=== PATIENT | male | born 1980 | race Caucasian/White ===

== ENCOUNTER 2019-11-27 07:54 | Emergency (ER) | payer MEDICAID ==
[~2019-11-27] VITALS: Ht 182.9 cm; Wt 67.3 kg
[~2019-11-27 07:54] MED LIST: SILD50TA PO
[2019-11-27] MEDS ORDERED: LIDOcaine 4% (40 mg/ml) topical solution 50ml TP ONE (08:20)
[2019-11-27] MEDS ORDERED: LIDOcaine 1% W/epiNEPHrine 1:200,000 10ml vial IJ ONE (09:10)
[2019-11-27] MEDS ORDERED: CEPH500C5 PO (09:20)
[2019-11-27] MEDS ORDERED: ibuprofen 200mg tablet PO ONE (09:25)
[2019-11-27] MEDS ORDERED: HYDROcodone/acetaminophen 5mg/325mg tablet PO ONE (09:25)
[2019-11-27 09:35] VITALS: BP 120/70
== END 2019-11-27 09:39 | disposition home or self-care (01) ==
LOC: ER 07:54
DX: L72.3 Sebaceous cyst (principal); F41.9 Anxiety disorder, unspecified; F32.9 Major depressive disorder, single episode, unspecified; F17.200 Nicotine dependence, unspecified, uncomplicated; F15.90 Other stimulant use, unspecified, uncomplicated; Z79.2 Long term (current) use of antibiotics; Z79.899 Other long term (current) drug therapy
CPT/HCPCS: 87070; 87077; 87186; 99283

== ENCOUNTER 2019-11-29 12:00 | Emergency (ER) | payer OTHER, MEDICAID ==
[~2019-11-29] VITALS: Ht 182.9 cm; Wt 65.5 kg
[~2019-11-29 12:00] MED LIST changes: +CEPH500C5 PO
--- NOTE | 2019-11-29 12:30 | NUR ---
Patient reports having a syncopal event in snf with laceration to face and complains of tenderness to his neck. Patient reports that he believes pain is r/t the abscess which is present. Patient is log-rolled maintaining c-spine precautions and c-collar placed.
[2019-11-29] MEDS ORDERED: LIDOcaine 1% W/epiNEPHrine 1:200,000 10ml vial IJ ONE (12:40)
[2019-11-29 13:04] LABS: BASOPHILS % (AUTO) 0.2 % (0-1); EOSINOPHILS # (AUTO) 0.2 X10'3 (0-0.9); EOSINOPHILS % (AUTO) 1.2 % (0-6); HEMOGLOBIN 13.8 g/dl (14.0-17.9); LYMPHOCYTES # (AUTO) 1.4 X10'3 (1.1-4.8); LYMPHOCYTES % (AUTO) 9.5 % (21-51); MEAN CORPUSCULAR HEMOGLOBIN 28.3 PG (27.0-31.0); MEAN CORPUSCULAR HGB CONC 32.8 g/dL (33.0-36.5); MEAN CORPUSCULAR VOLUME 86.3 FL (78-98); MEAN PLATELET VOLUME 7.6 FL (7.4-10.4); MONOCYTES # (AUTO) 0.9 X10'3 (0-0.9); MONOCYTES % (AUTO) 5.8 % (2-12); NEUTROPHILS # (AUTO) 12.2 X10'3 (1.8-7.7); NEUTROPHILS % (AUTO) 83.3 % (42-75); PLATELET COUNT 328 X10'3 (140-440); RED BLOOD COUNT 4.86 X10'6 (4.70-6.10); RED CELL DISTRIBUTION WIDTH 13.4 % (11.5-14.5); WHITE BLOOD COUNT 14.7 X10'3 (4.5-11.0)
[2019-11-29] MEDS ORDERED: normal saline 1000ML IV soln IVB ONE (13:05)
[2019-11-29 13:23] LABS: ALANINE AMINOTRANSFERASE 29 U/L (12-78); ALBUMIN 3.2 G/DL (3.4-5.0); ALBUMIN/GLOBULIN RATIO 0.8 (1.1-1.5); ALKALINE PHOSPHATASE 47 IU/L (46-116); ANION GAP 8 (8-16); ASPARTATE AMINO TRANSFERASE 29 U/L (10-37); BILIRUBIN,TOTAL 0.3 MG/DL (0.1-1.0); BLOOD UREA NITROGEN 16 MG/DL (7-18); CALCIUM 8.8 MG/DL (8.5-10.1); CHLORIDE 100 MMOL/L (99-107); CREATININE 1.14 MG/DL (0.60-1.10); GLUCOSE 96 MG/DL (70-104); POTASSIUM 3.6 MMOL/L (3.5-5.1); SODIUM 137 MMOL/L (135-145); TOTAL CARBON DIOXIDE 29.5 MMOL/L (24-32); TOTAL PROTEIN 7.3 G/DL (6.4-8.2); eGFR 72 ML/MIN
[2019-11-29] MEDS ORDERED: iohexol 300mg/ml 100ml inj. ONE (13:46)
--- NOTE | 2019-11-29 13:57 | NUR ---
Patient to CT with nurse holding spinal precautions and patient in c-collar
--- NOTE | 2019-11-29 14:23 | NUR ---
pt back from CT, no neuro deficits, used cspine precautions to move pt from [facility] to [facility] and back, gave pt warm blanket
[2019-11-29] MEDS ORDERED: SULF1TAB49 PO (18:34)
[2019-11-29 18:59] VITALS: BP 117/82
== END 2019-11-29 19:03 | disposition left against medical advice (07) ==
LOC: ER 12:01 → EEVIPCON 12:01 → ER 19:03
DX: S01.81XA Laceration without foreign body of other part of head, initial encounter (principal); R55 Syncope and collapse; G43.909 Migraine, unspecified, not intractable, without status migrainosus; F41.9 Anxiety disorder, unspecified; F32.9 Major depressive disorder, single episode, unspecified; F15.90 Other stimulant use, unspecified, uncomplicated; Z72.89 Other problems related to lifestyle; Z79.2 Long term (current) use of antibiotics; Z79.899 Other long term (current) drug therapy; W18.39XA Other fall on same level, initial encounter; Y93.89 Activity, other specified; Y92.89 Other specified places as the place of occurrence of the external cause; Y99.8 Other external cause status
CPT/HCPCS: 12013; 36415; 70450; 71045; 72126; 72141; 80053; 83880; 84484; 85025; 93005; 96360; 96361; 99285; J7030; Q9967

== ENCOUNTER 2020-05-25 19:04 | Emergency (ER) | payer MEDICAID, OTHER ==
[~2020-05-25] VITALS: Ht 182.9 cm; Wt 90.0 kg
[~2020-05-25 19:04] MED LIST changes: +CEPH-585 PO; -CEPH500C5 PO
[2020-05-25] MEDS ORDERED: iohexol 350MG/ML 100ml bottle IV ONE (19:51)
[2020-05-25] MEDS ORDERED: IBUP-1984 PO (20:58)
[2020-05-25] MEDS ORDERED: CYCL-1 PO (20:58)
[2020-05-25] MEDS: cyclobenzaprine 10mg tablet PO ONE ×2 (21:08→21:10)
[2020-05-25] MEDS: ketorolac tromethamine 15mg/ml inj. IV ONE ×2 (21:08→21:10)
[2020-05-25 21:12] VITALS: BP 139/99
== END 2020-05-25 21:13 ==
LOC: EEVIPCON 19:04 → ER 19:04
DX: T71.162A Asphyxiation due to hanging, intentional self-harm, initial encounter (principal); T14.91XA Suicide attempt, initial encounter; M54.2 Cervicalgia; X83.8XXA Intentional self-harm by other specified means, initial encounter; Y93.89 Activity, other specified; Y92.89 Other specified places as the place of occurrence of the external cause; Y99.8 Other external cause status
CPT/HCPCS: 70450; 70498; 99285; Q9967; J1885

== ENCOUNTER 2024-11-03 21:00 | Emergency (ER) | payer MEDICAID, OTHER ==
[~2024-11-03] VITALS: Ht 185.4 cm; Wt 86.2 kg
[~2024-11-03 21:00] MED LIST changes: -CEPH-585 PO; +CYCL-1 PO
--- NOTE | 2024-11-03 21:19 | Physician Documentation ---
History of Present Illness ~ Chief Complaint: Trauma Level 1 Stated Complaint: 5150 Time Seen by MD: 21:34 Primary Medical Doctor: LEONARD Kaminski HPI 44-year-old male with a history of psychosis an unknown psychiatric diagnoses presents to the ED for complaint of neck pain and lacerations caused by a box toe cementer via self-harm. The patient was brought in via the the tour leader's office. Denies any shortness of breath . patient is calm during the interview. The patient took a box toe cementer and cut his neck and attempt to kill himself. He has significant bleeding from the lacerations. Day of Onset: Nov 03, 2024 Tetanus within 5 years?: Yes Medication Reconciliation Allergies: Coded Allergies: No Known Allergies (Unverified , 11/03/24) Discontinued Medications Cyclobenzaprine* (Cyclobenzaprine*), 1 TAB PO Q8H Discontinued Reason: Other Sildenafil Citrate* (Viagra*), 1 TAB PO UD, (Reported) Discontinued Reason: Other Past Medical History Past Medical History: Migraine, Anxiety, Depression Past Surgical History: no surgical history Alcohol Use: Sober Drug Use: methamphetamine Lives with: Family Lives In: Home Review of Systems All Other Systems at this time: Reviewed and Negative ROS As stated above in the HPI, otherwise all systems are reviewed and negative. Physical Exam Vital Signs: Temperature: 98.8, Source: Oral, Heart Rate: 124, BP: 133/98, Pulse Oximetry: 97, Weight: 86.360 Physical Exam I have reviewed the triage vitals. CONST: Disheveled HENT: Head Atraumatic EYES: Pupils are equal, round and reactive to light. Normal conjunctiva NECK: Normal range of motion. Supple. CARDIO: Normal rate and regular rhythm. No murmurs, rubs, or gallops. S1, S2. PULM/CHEST: No respiratory distress. Lungs clear to auscultation. No wheeze ABD: Soft and nontender. Nondistended. Bowel sounds normal. No guarding. : Exam deferred MSK: No edema. No deformity. NEURO: Alert and oriented to person, place and time. Moving all extremities SKIN: 8 cm deep transverse laceration over the left side of the neck, 7 cm more superficial transverse laceration over the right side of the neck, left-sided laceration with significant nonpulsatile bleeding, right laceration with mild oozing of blood PSYCH: Good eye contact, anxious mood agitated Procedures Laceration/Wound Repair : Location: Bilateral neck Length (cm): 15 Anesthesia: Lidocaine w/ Epi Volume Anesthetic (mls): 10 Prep: betadine Irrigated w/ Saline (mls): 30 Debrided: minimal Undermining: none Margins: flaps aligned Foreign Body: not identified Repaired: skin Wound Repaired With: sutures Suture Size/Type: 3-0, ethilon Number of Superficial Sutures: 11 Dressing Applied: simple Tolerated Procedure Well?: yes, no complications Procedure Note Two separate lacerations on the bilateral sides of the neck were repaired. 8 cm laceration on the left and 7 cm laceration on the right. Eleven continuous sutures placed on the left side. Ten continuous sutures placed on the right side. Additional Procedures Procedure Note Moderate sedation was performed. Total 270 mg of IV ketamine was used in addition to 20 mg of IV Versed. Patient was monitored on panel monitor and ongoing oximetry. Patient tolerated the procedure well without any complications. Progress Progress Note The patient is medically cleared for psychiatric evaluation. Results/Orders Results/Orders Vital Signs 11/03/24 11/03/24 11/03/24 11/03/24 21:01 21:21 21:31 21:47 Temp 98.8 98.8 98.8 Pulse 124 124 85 Resp 16 14 B/P (MAP) 133/98 133/98 (110) Pulse Ox 97 97 100 O2 Delivery Room Air 11/03/24 11/03/24 11/03/24 11/03/24 22:11 22:19 22:34 22:35 Temp 98.8 98.6 98.6 Pulse 105 95 86 115 Resp 18 16 15 16 B/P (MAP) 133/89 (104) Pulse Ox 100 100 100 100 11/03/24 11/03/24 11/03/24 11/03/24 23:17 23:22 23:31 23:35 Pulse 133 118 Resp 14 14 16 16 B/P (MAP) 130/90 (103) Pulse Ox 98 11/03/24 11/03/24 11/03/24 11/03/24 23:39 23:40 23:45 23:50 Pulse 96 125 118 115 Resp 14 14 14 16 B/P (MAP) 144/95 140/89 (106) 110/82 (91) 98/88 (91) Pulse Ox 98 99 97 97 O2 Delivery Room Air 11/04/24 11/04/24 11/04/24 11/04/24 00:05 00:09 00:12 00:15 Pulse 97 94 99 95 Resp 16 18 18 18 B/P (MAP) 112/80 (91) 110/72 (85) 95/67 110/74 (86) Pulse Ox 99 100 100 98 O2 Delivery Room Air 11/04/24 11/04/24 11/04/24 11/04/24 00:20 00:20 00:25 00:35 Pulse 93 74 95 75 Resp 18 18 16 16 B/P (MAP) 97/61 (73) 115/78 (90) 95/63 (74) 110/62 (78) Pulse Ox 97 99 97 100 O2 Delivery Room Air Room Air 11/04/24 11/04/24 11/04/24 11/04/24 00:50 01:05 01:16 02:24 Temp 98.2 Pulse 76 73 74 70 Resp 18 17 16 12 B/P (MAP) 114/70 (85) 101/70 (80) 101/70 (80) 103/80 (88) Pulse Ox 98 100 100 100 O2 Delivery Room Air Room Air Room Air O2 Flow Rate 0 11/04/24 11/04/24 11/04/24 11/04/24 02:54 03:50 04:05 04:51 Pulse 62 79 Resp 16 16 18 12 B/P (MAP) 124/85 (98) 115/86 (96) Pulse Ox 100 99 O2 Flow Rate 0 11/04/24 11/04/24 11/04/24 11/04/24 07:45 08:00 10:50 17:18 Temp 97.8 98.7 98.9 Pulse 66 76 83 Resp 16 17 18 B/P (MAP) 16/ 102/65 (77) 116/73 (87) Pulse Ox 100 99 97 11/04/24 11/05/24 11/05/24 11/05/24 19:22 10:40 17:59 18:46 Temp 98.3 Pulse 87 Resp 18 16 B/P (MAP) 111/72 (85) Pulse Ox 94 O2 Flow Rate 0 11/06/24 11/06/24 11/06/24 11/06/24 06:19 07:02 18:04 18:13 Temp 97.1 Pulse 89 100 Resp 16 16 19 B/P (MAP) 102/67 (79) 124/76 (92) Pulse Ox 100 72 11/06/24 11/07/24 19:43 05:43 Temp 97.2 Pulse 100 Resp 16 16 B/P (MAP) 96/68 (77) Pulse Ox 100 Laboratory Tests Test 11/03/24 21:11 11/03/24 21:17 11/03/24 23:21 11/04/24 00:59 White Blood Count 10.5 Red Blood Count 5.08 Hemoglobin 14.6 Hematocrit 42.3 Mean Corpuscular Volume 83.2 Mean Corpuscular Hemoglobin 28.7 Mean Corpuscular Hemoglobin Concent 34.6 Red Cell Distribution Width 13.6 Platelet Count 246 Mean Platelet Volume 7.8 Neutrophils (%) (Auto) 79.5 H Lymphocytes (%) (Auto) 12.8 L Monocytes (%) (Auto) 6.8 Eosinophils (%) (Auto) 0.5 Basophils (%) (Auto) 0.4 Neutrophils # (Auto) 8.4 H Lymphocytes # (Auto) 1.4 Monocytes # (Auto) 0.7 Eosinophils # (Auto) 0.1 Basophils # (Auto) 0.0 CBC Comment Sodium Level 137 Potassium Level 3.5 Chloride Level 101 Carbon Dioxide Level 23.5 L Anion Gap 13 Blood Urea Nitrogen 15 Creatinine 1.12 H Estimated GFR/1.73 m2 72 BUN/Creatinine Ratio 13.4 Glucose Level 108 H Calcium Level 8.8 Troponin I High Sensitivity 5 5 8 Pro-B-Type Natriuretic Peptide 86 Albumin 4.3 Thyroid Stimulating Hormone (TSH) 0.94 Chemistry Comments Ethyl Alcohol Level < 10 Glucometer 115 H Troponin I High Sens Percent Delta 0 60 Troponin I Hi Sens Absolute Change 0 3 Test 11/04/24 04:20 11/04/24 05:50 SARS-CoV-2 Antigen (Rapid) Negative Urine Specimen Description Cln catch midstream Urine Color Yellow Urine Clarity Clear Urine pH 6.0 Urine Specific [place] 1.020 Urine Protein Negative Urine Glucose (UA) Negative Urine Ketones 15 H Urine Occult Blood Small Urine Nitrite Negative Urine Bilirubin Negative Urine Urobilinogen 0.2 Urine Leukocyte Esterase Negative Urine RBC 0-2 Urine WBC 0-4 Urine Squamous Epithelial Cells None seen Urine Bacteria None seen Urine Mucus None seen Volume Urine Centrifuged 10 ml Urine Comment Urine Opiates Screen Positive Urine Methadone Screen Negative Urine Fentanyl Screen Negative Urine Barbiturates Screen Negative Urine Phencyclidine Screen Negative Urine Amphetamines Screen Positive Urine Benzodiazepines Screen Positive Urine Cocaine Screen Negative Urine Cannabinoids Screen Negative Drug Screen Comment Medical Decision Making Differential Dx:Considerations: Include: Closed head injury, Cardiac injury, Fracture(s), Intraabdominal injury, Pneumothorax, Cerebral contusion, Pulmonary contusion, Spine injury, Tracheal injury, Urological injury, Vascular injury, Abrasion(s), Contusion(s), Foreign body(s), Hematoma(s), Laceration(s), Encephalopathy, Other Departure Disposition: ADMITTED INPATIENT Admitted to Inpatient Unit: other ([facility]) Impression: Primary Impression: Attempted suicide Additional Impression: Laceration of neck Condition: Guarded Referrals: NO PRIMARY CARE PROVIDER (PCP) Critical Care Note Total Time (mins): 130 Critical Care Note The very real possibility of a deterioration of this patient's condition required the highest level of my preparedness for sudden, emergent intervention. I provided critical care services, which included medication orders, frequent reevaluations of the patient's condition and response to treatment, ordering and reviewing test results, and discussing the case with various consultants. Excludes time spent performing separately billable procedures. The critical care time associated with the care of the patient was. Signature Scribe Signature: cam Attestation: Scribed for Emergency,Department by Crescencio Norton NP . 11/03/24 21:25 Addendum 11/05/2024: Pt signed out to me as part of their psychiatric ED evaluation. Pt resting well. Vital signs within expected ranges. This patient made a significant effort to slices neck with a box toe cementer. Fortunately, CTA of the soft tissue neck did not reveal any major vascular injuries. The patient has been sutured and awaits behavioral health evaluation and disposition. Brief Physical Examination: Alert and appropriately oriented. No signs of respiratory distress. Able to ambulate and move all extremities. Medical evaluation does not indicate metabolic derangement. No evidence of DT's while in the ED during my shift. Ambulating without difficulty. Speaking in full sentences. Easily arousable and interactive. Hemodynamically stable. The patient is currently receiving prophylactic antibiotics intravenously for a significant laceration to the neck. I am going to request admission for continued antibiotic therapy as behavioral Health will not evaluate him while he is receiving this medical therapy. 11/06/2024: Pt signed out to me as part of their psychiatric ED evaluation. Pt resting well. Vital signs within expected ranges. This patient made a significant effort to slices neck with a box toe cementer. Fortunately, CTA of the soft tissue neck did not reveal any major vascular injuries. The patient has been sutured and awaits behavioral health evaluation and disposition. Brief Physical Examination: Alert and appropriately oriented. No signs of respiratory distress. Able to ambulate and move all extremities. Medical evaluation does not indicate metabolic derangement. No evidence of DT's while in the ED during my shift. Ambulating without difficulty. Speaking in full sentences. Easily arousable and interactive. Hemodynamically stable. The patient is currently receiving prophylactic antibiotics intravenously for a significant laceration to the neck. I am going to request admission for continued antibiotic therapy as behavioral Health will not evaluate him while he is receiving this medical therapy. 11/07/2024: Patient was examined. Slightly agitated. Neck examined. The repaired the wounds are clean, dry, intact. The laceration does not require wound care. CRESCENCIO CATES NP Nov 03, 2024 21:19 SCAR HINES MD Nov 04, 2024 05:10 LORENZO RICHARDSON MD Nov 04, 2024 07:13 TOM GALDAMEZ DO Nov 07, 2024 10:15
[2024-11-03 21:35] LABS: MEAN PLATELET VOLUME 7.8 FL (7.4-10.4); RED CELL DISTRIBUTION WIDTH 13.6 % (11.5-14.5)
--- NOTE | 2024-11-03 21:47 | ELECTROCARDIOGRAPH REPORT ---
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
[2024-11-03 21:52] LABS: CREATININE 1.12 MG/DL (0.60-1.10); PRO BRAIN NATRIURETIC PEPTIDE 86 PG/ML (0-125); TOTAL CARBON DIOXIDE 23.5 MMOL/L (24-32); eCRCL 96 ML/MIN; eGFR 72 ML/MIN
--- NOTE | 2024-11-03 22:16 | RADIOLOGY REPORT ---
CHEST RADIOGRAPH Indication: CP Technique: 1 view Comparison: CHEST,SINGLE VIEW on DOS: 11/29/19 FINDINGS: Lines and Tubes: External leads. Lungs: No focal consolidation. Pleura: No effusion or pneumothorax. Cardiomediastinal contours: Unremarkable. Other: No acute osseous abnormality. IMPRESSION: 1. No acute cardiopulmonary abnormality.
[2024-11-03 22:22] LABS: ETHANOL < 10 MG/DL (<10)
--- NOTE | 2024-11-03 22:22 | RADIOLOGY REPORT ---
INDICATION: penetrating trauma COMPARISON: CTA NECK on DOS: 05/25/20, CT HEAD on DOS: 05/25/20, CT CERVICAL SPINE on DOS: 11/29/19 TECHNIQUE:CTA neck with intravenous contrast. 3D/MIP image postprocessing was performed and images we re used for interpretation and reporting. Radiation Dose Information: CT Dose: CTDI volume is 20.4 mGy. Dose-length product is 482.06 mGy*cm FINDINGS: Normal 3-vessel origin left-sided aortic arch. Streak artifact from contrast within adjacent venous structures limits evaluation of the right subcla vian artery. Otherwise, bilateral subclavian arteries unremarkable. Bilateral common carotid and cer vical ICAs unremarkable. Bilateral vertebral arteries are unremarkable. Visualized intracranial vertebral arteries unremarkable. The visualized dural venous sinuses and bilateral jugular veins unremarkable.. Mild asymmetric enlargement of the left sternocleidomastoid at the level of the left mid and lower ne ck with associated adjacent peripheral hematoma with internal foci of air measuring up to 1 cm in max imum thickness . No large vessel injury. The fat plane medial to the left sternocleidomastoid muscle is maintained. There is wound overlying the mid to lower sternocleidomastoid muscle with external heterogeneous hype rdensity. There is curvilinear hyperdensity within the subcutaneous fat at the level of the wound ex tending into the external heterogeneous density. The nasopharynx, oropharynx, hypopharynx and glottis are unremarkable. There appears to be phlegm tra kati. The thyroid gland is unremarkable. The lung apices are clear. No evidence acute osseous abnormalities . IMPRESSION: No hemodynamically significant stenosis, aneurysm or dissection involving the major and visualized in tracranial vasculatures. No large vessel injury is noted. Mild asymmetric prominence of the left mid to lower sternocleidomastoid muscle with associated Latera l hematoma measuring up to 1 cm in maximal thickness. There is wound over the mid to Distal left lower neck with lateral curvilinear density within the scanlon bcutaneous fat of the mid to lower neck extending into an external heterogeneous density over the wo und. Correlate For possible foreign body versus superficial active hemorrhage
[2024-11-03] MEDS: ketamine 10mg/ml 20ml inj vial IV ONE (23:17)
[2024-11-03] MEDS: ketamine 10mg/ml 20ml inj vial ONE (23:31)
[2024-11-03] MEDS: LIDOcaine 1% W/epiNEPHrine 1:100,000 20ml vial SQ ONE (23:45)
[2024-11-04] MEDS: MIDAZolam 5mg/ml 2ml vial IV ONE (00:07)
[2024-11-04] MEDS: ceFAZolin/D5W- 1GM premix 50 ML IV ONE (00:34)
[2024-11-04] MEDS: ceFAZolin/D5W- 1GM premix 50 ML IV SCH (01:10)
[2024-11-04] MEDS: TETanus/Pertussis (Acell)/Diphther VAC/PF (Tdap-Adult) 0.5ml syringe IMVAC ONE (02:40)
[2024-11-04] MEDS: metoclopramide 5 mg/ml inj IV ONE (05:54)
[2024-11-04 06:38] LABS: URINE AMPHETAMINE SCREEN POSITIVE (Neg); URINE BARBITUATE SCREEN NEGATIVE (Neg); URINE BENZODIAZEPINES SCREEN POSITIVE (Neg); URINE CANNABINOID SCREEN NEGATIVE (Neg); URINE COCAINE SCREEN NEGATIVE (Neg); URINE METHADONE SCREEN NEGATIVE (Neg); URINE OPIATE SCREEN POSITIVE (Neg); URINE PHENCYCLIDINE SCREEN NEGATIVE (Neg)
[2024-11-04 06:45] LABS: LEUKOCYTE ESTERASE ,URINE NEGATIVE (Neg); NITRITES, URINE NEGATIVE (Neg); OCCULT BLOOD,URINE SMALL (Neg)
[2024-11-04 06:50] LABS: UA COLLECTION TYPE CLN CATCH MIDSTREAM
[2024-11-04 06:57] LABS: MUCUS STRANDS NONE SEEN /LPF (Neg); SQUAMOUS EPITHELIAL CELL,UR NONE SEEN /LPF (FEW)
[2024-11-04] MEDS: OLANZapine **IM** 10 mg inj. IM ONE (10:45)
[2024-11-04] MEDS: diazepam inj 5 MG/ML inj. IV ONE (10:47)
[2024-11-07 05:43] VITALS: BP 96/68; PULSE 100; RESP 16; TEMP 97.2; O2SAT 100
== END 2024-11-07 16:03 | disposition admitted as inpatient to this hospital (09) ==
LOC: ER 21:00
DX: S11.91XA Laceration without foreign body of unspecified part of neck, initial encounter (principal); T14.91XA Suicide attempt, initial encounter; R06.02 Shortness of breath; Z20.822 Contact with and (suspected) exposure to COVID-19; X58.XXXA Exposure to other specified factors, initial encounter; Y93.89 Activity, other specified; Y92.89 Other specified places as the place of occurrence of the external cause; Y99.8 Other external cause status
CPT/HCPCS: 12005; 36415; 70498; 71045; 80048; 80305; 80320; 81001; 82948; 83880; 84443; 84484; 85025; 86885; 86900; 86901; 86920; 87811; 90471; 90715; 93005; 96365; 96372; 96375; 99152; 99153; 99291; 99292; J0690; J1171; J1200; J2060; J2250; J2765; J3360; J3490; J7030; Q9967; 99285